=== PATIENT | male | born 1955 | race Caucasian/White ===

== ENCOUNTER 2022-04-27 13:35 | Emergency (ER) | payer BC, OTHER ==
[2022-04-27 13:54] VITALS: BP 133/80; PULSE 80; RESP 18; TEMP 98; BMI 28.2
== END 2022-04-27 16:47 | disposition home or self-care (01) ==
LOC: JERFT 13:35
DX: K64.9 Unspecified hemorrhoids (principal)
CPT/HCPCS: 99282-25